=== PATIENT | female | born 1980 | race Caucasian/White ===

== ENCOUNTER 2017-02-11 05:26 | Day surgery (SDC) | payer OTHER ==
[~2017-02-11] VITALS: Ht 180.3 cm; Wt 109.8 kg
[~2017-02-11 05:26] MED LIST: FOLIC ACID1 MG PO; METHOTREXATE2.5 MG PO; Motrin PO; PRENATAL TABLE1 EAC3 PO; [UNRECOGNIZED DRUG - OTHER] PO
[2017-02-11 06:38] VITALS: BP 144/69
[2017-02-11] MEDS ORDERED: ENDOCET 5-3251 EACH PO (08:25)
[2017-02-11 09:12] VITALS: BP 137/63
[2017-02-11 10:12] VITALS: BP 129/65
== END 2017-02-11 10:21 | disposition home or self-care (01) ==
LOC: SDC 05:26
DX: Z30.2 Encounter for sterilization (principal); E66.9 Obesity, unspecified; Z68.33 Body mass index [BMI] 33.0-33.9, adult; Z82.49 Family history of ischemic heart disease and other diseases of the circulatory system; Z88.0 Allergy status to penicillin
CPT/HCPCS: J1100; J1885; J2250; J2405; J3010; J7120; S0020